=== PATIENT | female | born 1940 | race African-American/Black ===

== ENCOUNTER → 2016-07-03 | Outpatient (CLI) | payer MEDICARE, OTHER ==
[~2016-07-03] MED LIST: HM DOUBLE ANT28.4 G1 TP
--- NOTE | 2016-07-03 14:19 | Diagnostic Imaging Report ---
Indication: PAIN Technique: 3 views left hand Comparison: none Findings: There is question of slight irregularity of the terminal tuft of the fifth digit. Nondisplaced fracture cannot completely excluded. No other acute fractures. No dislocations. Joint spaces are preserved Impression: Cannot rule out fracture of the terminal tuft of the fifth distal phalanx. Correlate with clinical findings. No other acute or significant abnormality Findings discussed by phone with Dr. Case at the time of interpretation
== END | disposition home or self-care (01) ==
LOC: RAD 12:24
DX: M25.542 Pain in joints of left hand (principal)

== ENCOUNTER 2016-08-19 14:01 | Emergency (ER) | payer MEDICARE, OTHER ==
[~2016-08-19] VITALS: Ht 149.9 cm; Wt 87.1 kg
--- NOTE | 2016-08-19 14:54 | Emergency Room Report ---
History of Present Illness General Chief Complaint: Skin Rash/Abscess Source: Patient Present Illness HPI 76 Yo Female presents to the ED c/o pain, swelling, and erythema of lateral right forearm x 1 week, just rx'd abx this am, however pcp referred to ED for I & D. Denies nausea, vomiting, fevers, chills, fall or trauma. Denies taking blood thinning medications. Denies history of immune compromise. Denies numbness tingling or loss of sensation or gross motor movements of the extremities, incontinence of bowel or bladder. Denies CP, Palpitations, LOC, AMS , dizziness, Changes in Vision, Sensation, paresthesias, or a sudden severe headache. Allergies: Coded Allergies: KISHOR INHIBITORS (Verified Allergy, Unknown, 09/02/10) HYDROMORPHONE HCL (Verified Allergy, Unknown, 01/30/12) Patient History Past Medical History: see triage record Past Surgical History: none Pertinent Family History: none Now: No Immunizations: UTD Reviewed Nursing Documentation: PMH: Agreed, PSxH: Agreed Nursing Documentation-PMH Past Medical History: No History, Except For Hx Hypertension: Yes Hx Pacemaker: Yes Review of Systems All Other Systems: negative except mentioned in HPI Physical Exam Vital Signs Date Time Temp Pulse Resp B/P Pulse Ox O2 Delivery O2 Flow Rate FiO2 08/19/16 14:37 99.0 82 16 161/71 97 Room Air Sp02 EP Interpretation: reviewed, normal General Appearance: no apparent distress, alert, GCS 15, non-toxic Head: normocephalic, atraumatic Eyes: bilateral eye PERRL, bilateral eye normal inspection ENT: hearing grossly normal, normal pharynx, no angioedema, normal voice Neck: full range of motion, supple/symm/no masses Respiratory: lungs clear, normal breath sounds, speaking full sentences Cardiovascular #1: regular rate, rhythm, no edema Gastrointestinal: non tender Musculoskeletal: back normal, gait/station normal, normal range of motion, tender - TTP and erythema to the right forearm, palpable fluctuance consistent with abscess. Neurologic: alert, oriented x3, responsive, motor strength/tone normal, sensory intact, speech normal Psychiatric: judgement/insight normal, memory normal, mood/affect normal, no suicidal/homicidal ideation Skin: normal color, no rash, warm/dry, well hydrated, other - right forearm abscess approx 1.5cm in diameter with palpated fluctuance, erythema Lymphatic: no adenopathy Procedures Incision and Drainage Incision and Drainage : Consent: Verbal Blade Size: 11 I & D Procedure: betadine prep Wound Location: upper extremity - right forearm- lateral Wound's Depth, Shape: superficial Wound Length (cm): 1 Wound Explored: contaminated - purulent d/c noted Anesthesia: Lidocaine w/ Epi Volume Anesthetic (ccs): 2 Splint Applied?: No Sling Applied?: No Patient Tolerated: Well Complications: None Medical Decision Making PA Attestation Dr. Limon is my supervising Physician whom patient management has been discussed with. Diagnostic Impression: Primary Impression: Abscess ER Course Pt. presents to the ED c/o pain, swelling, and erythema of lateral right forearm x 1 week, just rx'd abx this am, however pcp referred to ED for I & D. Ddx considered but are not limited to cellulitis, abscess, cystic acne, necrotizing fasciitis, insect bite. Vital signs: are WNL, pt. is afebrile H&PE are most consistent with right forearm abscess approx 1.5cm in diameter with palpated fluctuance. ORDERS: none required at this time, the diagnosis is clinical ED INTERVENTIONS: -I & D. -Bacitracin and sterile dressing is applied by RN. DISCHARGE: At this time pt. is stable for d/c to home. Will provide printed patient care instructions, and any necessary prescriptions. Care plan and follow up instructions have been discussed with the patient prior to discharge. Last Vital Signs Date Time Temp Pulse Resp B/P Pulse Ox O2 Delivery O2 Flow Rate FiO2 08/19/16 14:37 99.0 82 16 161/71 97 Room Air Disposition: HOME, SELF-CARE Condition: Stable Scripts Bacitracin Zinc/Polymyx B Sulf (HM DOUBLE ANTIBIOTIC OINTMENT) 28.4 Gm Oint...g. 1 APPLIC TP BID, #28.4 GM Prov: Diya Rae 08/19/16 Patient Instructions: Abscess Additional Instructions: Take previously prescribed antibiotic medications as directed. Follow up with PCP in 3-5 days Return sooner to ED if new symptoms occur, or current symptoms become worse. - Please note that this Emergency Department Report was dictated using [employer] supervisor technology software, occasionally this can lead to erroneous entry secondary to interpretation by the dictation equipment. Diya Rae Aug 19, 2016 14:54
[2016-08-19] MEDS ORDERED: HM DOUBLE ANT28.4 G1 TP (14:55)
[2016-08-19] MEDS ORDERED: Bacitracin Oint UD TOPIC ONE (15:00)
[2016-08-19 15:45] VITALS: BP 188/75
== END 2016-08-19 15:50 | disposition home or self-care (01) ==
LOC: EMR 15:15
DX: L02.413 Cutaneous abscess of right upper limb (principal); Z88.6 Allergy status to analgesic agent; I10 Essential (primary) hypertension; Z95.0 Presence of cardiac pacemaker
CPT/HCPCS: 10060